=== PATIENT | female | born 1985 | race Caucasian/White ===

== ENCOUNTER → 2019-08-03 | Outpatient (CLI) | payer OTHER ==
[2019-08-03 09:39] LABS: Basophils % (A) 0 %; Eosinophils # (A) 0.2 k/uL (0-0.7); Eosinophils % (A) 2 %; HCT 34.8 % (34.0-46.0); HGB 12.3 gm/dL (11.4-16.0); Lymphocytes # (A) 2.4 k/uL (1.0-4.8); Lymphocytes % (A) 23 %; MCH 31.1 pg (25.0-35.0); MCHC 35.4 g/dL (31.0-37.0); MCV 87.8 fL (80.0-100.0); Monocytes # (A) 0.6 k/uL (0-1.0); Monocytes % (A) 6 %; Neutrophils % (A) 67 %; Platelet Count 298 k/uL (150-450); RBC 3.97 m/uL (3.80-5.40); RDW 13.2 % (11.5-15.5); WBC 10.4 k/uL (3.8-10.6)
== END | disposition home or self-care (01) ==
LOC: LABPAT 09:03
PROVIDERS: ATTEND Obstetrics & Gynecology
DX: Z01.812 Encounter for preprocedural laboratory examination (principal); O03.9 Complete or unspecified spontaneous abortion without complication
CPT/HCPCS: 36415; 85025

== ENCOUNTER 2019-08-04 07:16 | Day surgery (SDC) | payer OTHER ==
[2019-08-02 11:49] VITALS: BMI 19.5
[~2019-08-04 07:16] MED LIST: DEXAMETHASONE SOD PHOSPHATE 10 MG/ML 1 ML VIAL IV ONE; HYDROmorphone 0.5 MG/0.5 ML SYRINGE IVP PRN; LACTATED RINGERS 1,000 ML IV SCH; LIDOCAINE 1% 20 ML VIAL (10MG/ML) FOR IV START INTRADERMA PRN; ONDANSETRON 4 MG/2 ML VIAL IVP ONE; Pre Op ABX Message 1 EACH MISC MISCELLANE ONE
[2019-08-04 07:36] VITALS: RESP 16
[2019-08-04] MEDS ORDERED: SCOPOLAMINE 1.5MG/72HR PATCH TRANSDERM ONE (08:23)
[2019-08-04] MEDS ORDERED: KETOROLAC 30 MG/ML 1 ML VIAL ONE (08:44)
[2019-08-04] MEDS ORDERED: PROPOFOL 10 MG/ML 20 ML VIAL IV ONE (08:44)
[2019-08-04] MEDS ORDERED: LIDOCAINE 1% INJ 10MG/ML (20 ML MDV) ONE (08:44)
[2019-08-04] MEDS ORDERED: MIDAZOLAM 2 MG/2 ML VIAL ONE (08:44)
[2019-08-04] MEDS ORDERED: fentaNYL (PF) 50 MCG/ML 2 ML AMP ONE (08:44)
[2019-08-04] MEDS ORDERED: diphenhydrAMINE 50 MG/ML 1 ML VIAL IVP PRN (08:47)
[2019-08-04] MEDS ORDERED: KETOROLAC 30 MG/ML 1 ML VIAL IVP PRN (08:47)
[2019-08-04] MEDS ORDERED: Acetaminophen-Codeine 300-30mg TAB PO PRN ×2 (08:47)
[2019-08-04] MEDS ORDERED: ONDANSETRON 4 MG/2 ML VIAL IVP PRN (08:47)
[2019-08-04] MEDS ORDERED: IBUPROFEN 600 MG TAB PO PRN (08:47)
[2019-08-04] MEDS ORDERED: METOCLOPRAMIDE 5 MG/ML 2 ML VIAL IVP PRN (08:47)
[2019-08-04] MEDS ORDERED: SIMETHICONE 80 MG CHEWABLE PO PRN (08:47)
[2019-08-04] MEDS ORDERED: LACTATED RINGERS 1,000 ML IV SCH (09:00)
--- NOTE | 2019-08-04 09:19 | P.OP ---
Date of Procedure: 08/04/19 Preoperative Diagnosis: #1. 8+ week missed Postoperative Diagnosis: Same Procedure(s) Performed: #1. Dilation and aspiration curettage Anesthesia: other (Gen. by face mask) Surgeon: Arsenio Yao Estimated Blood Loss (ml): 800 IV fluids (ml): 500 Urine output (ml): 150 Pathology: other (Intrauterine contents) Condition: stable Disposition: PACU Operative Findings: Preoperative pelvic examination demonstrated an 8-10 week midplane mobile normal shaped uterus with normal adnexa bilaterally. Intraoperatively, the uterus sounded to approximately 12 cm. A #9 aspiration curet was utilized and tissues clearly seen passing through the tubing on the first 3-4 passes after which time no further tissue was noted. The typical gritty texture was encountered with a sharp curette and no further tissue was produced thereafter. The uterus was appreciably smaller following the procedure. Description of Procedure: The patient was prepped and draped in usual fashion after general anesthesia was administered by the anesthesiologist. A weighted speculum was placed and the bladder drained of approximately 150 mL of clear bella urine. The uterus was sounded to approximately 12 cm as noted above. A #9 curved aspiration curet was placed to the fundus after which time suction was applied. Thorough and circumferential os aspiration curettage was carried out from the fundus to the cervix with tissue seen passing through the tubing. A second pass was made at which time further tissue was noted a third and fourth pass were also made at which time some tissue was noted. On the fifth pass, no further tissue was noted passing a. The aspiration curet was replaced with a medium sharp curette which was used to thoroughly and circumferentially curet the in vitro cavity at which time the typical gritty texture was encountered throughout. One last pass was made with the aspiration curet at which time no further tissue was noted. All instrumentation was then removed. There was a moderate amount of blood loss with an estimated blood loss was approximate 100 mL. There were no complications. All sponge, instrument, and needle counts were correct. The patient tolerated the procedure well and proceeded to the recovery room in stable condition.
[2019-08-04 09:27] VITALS: TEMP 98.8
[2019-08-04 10:27] VITALS: BP 97/67; PULSE 84
== END 2019-08-04 11:03 | disposition home or self-care (01) ==
LOC: OR 07:16
PROVIDERS: ATTEND Obstetrics & Gynecology
DX: O02.1 Missed abortion (principal); F17.210 Nicotine dependence, cigarettes, uncomplicated; Z98.890 Other specified postprocedural states; Z98.818 Other dental procedure status
CPT/HCPCS: 86900; 86901; 88305; 86850; 59820; J2250; J1100; J2405; J2001; J3010; J1885; J2704

== ENCOUNTER 2020-05-07 09:55 | Emergency (ER) | payer OTHER ==
[2020-05-07 10:03] VITALS: BP 123/78; PULSE 92; RESP 18; TEMP 98.3
--- NOTE | 2020-05-07 10:32 | ED ---
Female Urogenital HPI - General Chief complaint: Vaginal Bleeding Stated complaint: Poss Miscarriage Time Seen by Provider: 05/07/20 10:04 Source: patient, RN notes reviewed Mode of arrival: ambulatory Limitations: no limitations - History of Present Illness Initial comments: 34-year-old female presents emergency Department with chief complaint of vaginal bleeding in early . Patient states she is A1 is unsure how far along she is she states that she has very irregular menstrual cycles. Patient had 2 positive tests at home. Patient states that she had a miscarriage earlier this year with a D&C. Patient states she has no pain states she has mild cramping. She states it's very light bleeding only when she wakes. No dysuria no hematuria no flank pain. - Related Data Previous Rx's Medication Instructions Recorded Cephalexin [Keflex] 500 mg PO Q8HR #21 cap 05/07/20 Allergies Allergy/AdvReac Type Severity Reaction Status Date / Time No Known Allergies Allergy Verified 05/07/20 11:20 Review of Systems ROS Statement: Those systems with pertinent positive or pertinent negative responses have been documented in the HPI. ROS Other: All systems not noted in ROS Statement are negative. Past Medical History Additional Past Medical History / Comment(s): anemia History of Any Multi-Drug Resistant Organisms: None Reported Past Surgical History: Section, Hernia Repair Additional Past Surgical History / Comment(s): left knee arthroscopy x 2 Past Anesthesia/Blood Transfusion Reactions: Motion Sickness Past Psychological History: No Psychological Hx Reported Smoking Status: Current every day smoker Past Alcohol Use History: None Reported Past Drug Use History: None Reported - Past Family History Mother Family Medical History: No Reported History General Exam Limitations: no limitations General appearance: alert, in no apparent distress Head exam: Present: atraumatic, normocephalic, normal inspection Eye exam: Present: normal appearance, PERRL, EOMI. Absent: scleral icterus, conjunctival injection, periorbital swelling Respiratory exam: Present: normal lung sounds bilaterally. Absent: respiratory distress, wheezes, rales, rhonchi, stridor Cardiovascular Exam: Present: regular rate, normal rhythm, normal heart sounds. Absent: systolic murmur, diastolic murmur, rubs, gallop, clicks GI/Abdominal exam: Present: soft, normal bowel sounds. Absent: distended, tenderness, guarding, rebound, rigid Back exam: Absent: CVA tenderness (R), CVA tenderness (L) Neurological exam: Present: alert, oriented X3 Skin exam: Present: warm, dry, intact, normal color. Absent: rash Course Vital Signs 05/07/20 10:01 Temperature 98.3 F Pulse Rate 92 Respiratory 18 Rate Blood Pressure 123/78 O2 Sat by Pulse 100 Oximetry Medical Decision Making - Medical Decision Making 34-year-old female presented for vaginal bleeding early . Ultrasound does not show any obvious intrauterine cannot exclude ectopic though patient has no pain associated with ectopic. Patient has a 14,000 hCG. Patient will follow-up with her ROLLER and has an appointment at [facility] have repeat hCG - Lab Data Lab Results 05/07/20 05/07/20 Range/Units 10:14 10:14 HCG, Quant 38160.2 mIU/mL Urine Color Light Yellow Urine Appearance Cloudy H (Clear) Urine pH 7.0 (5.0-8.0) Ur Specific [place] 1.010 (1.001-1.035) Urine Protein Negative (Negative) Urine Glucose (UA) Negative (Negative) Urine Ketones Negative (Negative) Urine Blood Moderate H (Negative) Urine Nitrite Positive H (Negative) Urine Bilirubin Negative (Negative) Urine Urobilinogen <2.0 (<2.0) mg/dL Ur Leukocyte Esterase Trace H (Negative) Urine RBC 1 (0-5) /hpf Urine WBC 5 (0-5) /hpf Ur Squamous Epith Cells 13 H (0-4) /hpf Urine Bacteria Occasional H (None) /hpf Urine Mucus Rare H (None) /hpf Disposition Clinical Impression: Threatened miscarriage in early , UTI (urinary tract infection) Disposition: HOME SELF-CARE Condition: Stable Instructions (If sedation given, give patient instructions): Threatened Misca rriage (ED) Additional Instructions: Please return to the Emergency Department if symptoms worsen or any other concerns. Prescriptions: Cephalexin [Keflex] 500 mg PO Q8HR #21 cap Is patient prescribed a controlled substance at d/c from ED?: No Referrals: None,Stated [Primary Care Provider] - 1-2 days Time of Disposition: 11:33
[2020-05-07 10:46] LABS: Appearance,Urine Cloudy (Clear); Bacteria,Urine Occasional /hpf; Bilirubin,Urine Negative (Negative); Blood,Urine Moderate (Negative); Color,Urine Light Yellow; Glucose,Urine (UA) Negative (Negative); Ketones,Urine Negative (Negative); Leukocyte Esterase,Urine Trace (Negative); Mucus,Urine Rare /hpf; Nitrite,Urine Positive (Negative); Protein,Urine Negative (Negative); RBC,Urine 1 /hpf (0-5); Squamous Epithelial Cell,Urine 13 /hpf (0-4); Urobilinogen,Urine <2.0 mg/dL (<2.0); WBC,Urine 5 /hpf (0-5)
--- NOTE | 2020-05-07 11:23 | US ---
EXAMINATION TYPE: Transabdominal DATE OF EXAM: 05/07/2020 10:51 AM COMPARISON: NONE CLINICAL HISTORY: bleeding. bleeding. Positive test x 2 days ago. Irregular menses- last mid January. EXAM PERFORMED: Transvaginal (TV) and Transabdominal (TA) EXAM MEASUREMENTS: GESTATIONAL AGE / DATING Dates by LMP: Mid January Dates by Current Scan for: Unable to date by today's study MATERNAL ANATOMY Uterus: 9.4 x 7.0 x 4.6 cm Right Ovary: 4.0 x 2.3 x 2.3 cm Left Ovary: 3.0 x 2.1 x 1.8 cm Post CDS / Adnexa: no free fluid Presence of free fluid: no Presence of corpus luteal cyst: right ovarian lesion = 1.9 x 2.0 x 1.8 cm. Left cystic lesion seen a djacent to or within left ovary, unable to to accurately determine origin= 1.2 x 1.1 x 1.0 cm Presence of subchorionic bleed: no GESTATION / SURVEY MSD: 0.9 cm (Too small to date) Yolk Sac (normal less than 6mm): not seen IUP: GS visualized in endometrial canal Date of LMP: Mid January, Beta HcG (if available): Not available at this time Heterogeneous anteverted uterus. Endometrium thickened to 19 mm. There is ovoid anechoic to hypoechoi c structure within endometrium could reflect abnormal gestational sac or focal fluid/hemorrhage. No y olk sac or pole seen. No free fluid in pelvic cul-de-sac. Both ovaries identified with peripheral follicles scattered throughout both ovaries and dominant 2.0 cm peripheral lesion right ovary suspicious for corpus luteal cyst. IMPRESSION: Findings could reflect too early to visualize intrauterine or spontaneous abort ion. Ectopic thought unlikely but not entirely excluded. History is confusing. Serial beta hCG and ultrasound follow-up advised.
== END 2020-05-07 11:42 | disposition home or self-care (01) ==
LOC: EC 09:55
DX: O20.0 Threatened abortion (principal); O23.40 Unspecified infection of urinary tract in pregnancy, unspecified trimester; O99.330 Smoking (tobacco) complicating pregnancy, unspecified trimester; F17.200 Nicotine dependence, unspecified, uncomplicated; Z3A.00 Weeks of gestation of pregnancy not specified
CPT/HCPCS: 36415; 76801; 76817; 81001; 84702; 99284

== ENCOUNTER 2020-05-08 19:48 | Emergency (ER) | payer OTHER ==
[2020-05-08 20:17] VITALS: BP 109/73; PULSE 95; RESP 18; TEMP 98.5
--- NOTE | 2020-05-08 21:17 | ED ---
Abdominal Pain HPI - General Chief Complaint: Abdominal Pain Stated Complaint: Revisit Vaginal bleeding Time Seen by Provider: 05/08/20 20:35 Source: patient Mode of arrival: wheelchair Limitations: no limitations - History of Present Illness Initial Comments: Patient is a 34-year-old female presenting to the emergency Department with complaints of increase in vaginal bleeding and abdominal cramping. Patient was seen in the ER yesterday and was told she is having a possible miscarriage. Her ultrasound was inconclusive and they recommended a follow-up ultrasound. She is currently 5-6 weeks , . Patient does have an appoint with her OB, after [facility] tomorrow morning. She was supposed to also have her hCG rechecked as well. Patient states throughout today she's been having increase in bleeding as well as abdominal cramping. She states the abdominal cramping has been intermittent. She states she has had a miscarriage in the past and it was nothing like this. She denies any fever, dizziness, nausea, vomiting, diarrhea. She is also being treated for a UTI and she is currently on Keflex. Patient has no other complaints at this time. Upon arrival to the ER her vital signs are stable. - Related Data Previous Rx's Medication Instructions Recorded Cephalexin [Keflex] 500 mg PO Q8HR #21 cap 05/07/20 Allergies Allergy/AdvReac Type Severity Reaction Status Date / Time No Known Allergies Allergy Verified 05/08/20 20:17 Review of Systems ROS Statement: Those systems with pertinent positive or pertinent negative responses have been documented in the HPI. ROS Other: All systems not noted in ROS Statement are negative. Past Medical History Additional Past Medical History / Comment(s): anemia History of Any Multi-Drug Resistant Organisms: None Reported Past Surgical History: Section, Hernia Repair Additional Past Surgical History / Comment(s): left knee arthroscopy x 2 Past Anesthesia/Blood Transfusion Reactions: Motion Sickness Past Psychological History: No Psychological Hx Reported Smoking Status: Current every day smoker Past Alcohol Use History: None Reported Past Drug Use History: None Reported - Past Family History Mother Family Medical History: No Reported History General Exam - General Exam Comments Initial Comments: GENERAL: Patient is well-developed and well-nourished. Patient is nontoxic and in no acute distress. HEAD: Atraumatic, normocephalic. EYES: Pupils equal round and reactive to light, extraocular movements intact, sclera anicteric, conjunctiva are normal. Eyelids were unremarkable. ENT: TMs normal, nares patent, oropharynx clear without exudates. Moist mucous membranes. NECK: Normal range of motion, supple without lymphadenopathy or JVD. LUNGS: Unlabored respirations. Breath sounds clear to auscultation bilaterally and equal. No wheezes rales or rhonchi. HEART: Regular rate and rhythm without murmurs, rubs or gallops. ABDOMEN: Soft, nontender, normoactive bowel sounds. No guarding, no rebound. No masses appreciated. MUSCULOSKELETAL: Normal extremities with adequate strength and normal range of motion, no pitting or edema. No clubbing or cyanosis. NEUROLOGICAL: Patient is alert and oriented x 3. Motor and sensory are also intact. Normal speech, normal gait. PSYCH: Normal mood, normal affect. SKIN: Warm, Dry, normal turgor, no rashes or lesions noted. Limitations: no limitations External exam: Present: normal external exam Speculum exam: Present: vaginal bleeding, other (cervical os appears closed). Absent: cervical discharge Course Vital Signs 05/08/20 20:15 Temperature 98.5 F Pulse Rate 95 Respiratory 18 Rate Blood Pressure 109/73 O2 Sat by Pulse 99 Oximetry Medical Decision Making - Medical Decision Making Patient is a 34-year-old female here for a follow-up regarding vaginal bleeding and lower abdominal cramping. Patient was seen in the ER yesterday for same complaint, she is currently 5-6 weeks . Her ultrasound yesterday was inconclusive, they recommended follow-up ultrasound and follow-up beta hCG in 48 hours. Patient states she does have appointment with her [facility] tomorrow morning, Dr. Yao. Her vital signs are stable. I did do a vaginal exam, no hemorrhaging, mild vaginal bleeding. Her cervical os appears closed. I discussed with patient that she should continue with her follow-up tomorrow morning. She is stable at this time. She is stable for discharge. Patient is agreeable with this plan of care. She is also being treated for a UTI will continue with her already prescribed Keflex. Return parameters were discussed with the patient she verbalized understanding. Disposition Clinical Impression: Threatened miscarriage in early Disposition: HOME SELF-CARE Condition: Stable Instructions (If sedation given, give patient instructions): Threatened Miscarriage (ED) Additional Instructions: Please return to the Emergency Department if symptoms worsen or any other concerns. Continue with appointment tomorrow morning with Dr. Yao. May take Tylenol for discomfort, continue with already prescribed antibiotics. Is patient prescribed a controlled substance at d/c from ED?: No Referrals: None,Stated [Primary Care Provider] - 1-2 days Arsenio Yao MD [STAFF PHYSICIAN] - 1-2 days
== END 2020-05-08 21:39 | disposition home or self-care (01) ==
LOC: EC 19:48
DX: O20.0 Threatened abortion (principal); O99.331 Smoking (tobacco) complicating pregnancy, first trimester; Z3A.01 Less than 8 weeks gestation of pregnancy; F17.200 Nicotine dependence, unspecified, uncomplicated
CPT/HCPCS: 99283

== ENCOUNTER → 2020-05-09 | Outpatient (CLI) | payer OTHER | END | disposition home or self-care (01) | LOC: LABWHC1 08:10 | PROVIDERS: ATTEND Obstetrics & Gynecology | DX: O20.0 Threatened abortion (principal) | CPT/HCPCS: 36415; 84702 ==

== ENCOUNTER → 2024-01-26 | Outpatient (CLI) | payer OTHER ==
--- NOTE | 2024-01-26 13:58 | USB ---
Reason for Exam: Clinical finding. Patient History: Menarche at age 13. First Full-Term at age 23. Premenopausal. Hormonal Contraceptives, from age 15 until age 24. Risk Values: Parvin 5 year model risk: 0.4%. NCI Lifetime model risk: 8.3%. Technique: Method: Targeted. Findings: The area of palpable concern of the left breast, the lower outer quadrant of the left breast, the axilla of the left breast and the retroareolar of the left breast were scanned. There is a lobular irregular hypoechoic area 3 cm from the nipple 4:00 position measuring 2.0 x 1.6 x 2.2 cm. Finding is considered suspicious. Biopsy is recommended. Previa. Simple cysts near the left nipple measuring 6.0 cm x 0.8 x 0.6 cm. The left axilla there is a 0.9 x 0.5 x 0.5 cm node. This has thickened cortex.. An additional 1.7 x 0.5 cm x 0.7 lymph node appears to be present. Overall Assessment: Suspicious, BI-RAD 4 Management: Surgical Consultation of the left breast. Ultrasound Core Biopsy of the left breast. A clinical breast exam by your physician is recommended on an annual basis and results should be correlated with mammographic findings. This exam should not preclude additional follow-up of suspicious palpable abnormalities. Results were given to the patient verbally at the time of exam. Electronically signed and approved by: Juan Butler D.O. Radiologis
--- NOTE | 2024-01-26 13:59 | MM ---
Reason for Exam: Clinical finding. Risk Values: Parvin 5 year model risk: 0.4%. NCI Lifetime model risk: 8.3%. Tissue Density: The breasts are extremely dense, which lowers the sensitivity of mammography. Findings: Analyzed By CAD. The pattern is symmetrical. There is some regional punctate calcifications in the upper outer left breast near the region of the palpable abnormality. Suspicious cluster of microcalcifications is not identified. Slight asymmetric densities in the upper outer left breast. Recommend additional evaluation with ultrasound of the palpable abnormality. No suspicious groups of microcalcifications, spiculated or lobular masses, architectural distortion or other secondary signs of malignancy are mammographically apparent. Overall Assessment: Incomplete: need additional imaging evaluation, BI-RAD 0 Management: Diagnostic Breast Ultrasound of the left breast. A negative mammogram report should not preclude additional follow up of suspicious palpable abnormalities. Patient should continue monthly self breast exam. A clinical breast exam by your physician is recommended on an annual basis and results should be correlated with mammographic findings. Note on Parvin scores and lifetime risk: 1. A Parvin score greater than 3% is considered moderate risk. If this is the case, consider specialist referral to assess eligibility for a risk reducing agent. 2. If overall lifetime risk for the development of breast cancer is 20% or higher, the patient may qualify for future screening with alternating mammogram and breast MRI. Electronically signed and approved by: Juan Butler D.O. Radiologis
== END | disposition home or self-care (01) ==
LOC: RADMAMWWP 12:44
PROVIDERS: ATTEND Surgery
DX: N63.20 Unspecified lump in the left breast, unspecified quadrant (principal); R92.343 Mammographic extreme density, bilateral breasts
CPT/HCPCS: 77062; 77066

== ENCOUNTER → 2024-02-02 | Day surgery (SDC) | payer OTHER ==
--- NOTE | 2024-03-08 09:17 | MM ---
Reason for Exam: Post Procedure Mammogram. Last screening mammogram was performed less than 1 month ago. Patient History: Menarche at age 13. First Full-Term at age 23. Premenopausal. Hormonal Contraceptives, from age 15 until age 24. Risk Values: Parvin 5 year model risk: 0.4%. NCI Lifetime model risk: 8.3%. Prior Study Comparison: 01/26/2024 Left US breast limited LT, [facility]. 01/26/2024 Bilateral MG 3D diag mammo w/cad ELIJAH, [facility]. Tissue Density: Left: The breasts are extremely dense, which lowers the sensitivity of mammography. Pathology Description: Location: axilla. Marker Left Behind. Needle Type: Celero Cores: 2 Gauge: 12 Pathology Description: Location: 4 o'clock. Marker Left Behind. Needle Type: Celero Cores: 4 Gauge: 12 Pathology Results: Result: Malignant, Invasive ductal carcinoma. Pathology and radiology were reviewed. Findings are concordant. A. LEFT BREAST, FOUR O'CLOCK, ULTRASOUND GUIDED NEEDLE CORE BIOPSY: Invasive moderately differentiated ductal carcinoma (Grade 2). See Surgical Pathology Cancer Case Summary and Comment. B. LEFT AXILLA LYMPH NODE, CORE BIOPSY: Invasive moderately differentiated ductal carcinoma (Grade 2). See Surgical Pathology Cancer Case Summary and Comment. Overall Assessment: Malignant Assessment: MG diagnostic mammo LT wo CAD. - Left: Known biopsy proven malignancy, BI-RAD 6. Management: Surgical Consultation of the left breast. Electronically signed and approved by: Lewis Carvajal M.D. Radiologis
== END ==
LOC: RADUSWWP 09:51
PROVIDERS: ATTEND Surgery
DX: C50.912 Malignant neoplasm of unspecified site of left female breast (principal)
CPT/HCPCS: 88305; 88342; 88341; 77065; 19083; 19084; A4648

== ENCOUNTER → 2024-02-09 | Outpatient (CLI) | payer OTHER ==
[2024-02-09 08:51] VITALS: BP 107/65; PULSE 73; RESP 16; TEMP 97.8
--- NOTE | 2024-02-09 09:59 | P.GSCN ---
History of Present Illness Consult date: 02/09/24 Reason for Consult: left breast cancer Requesting physician: Brenden Silva History of present illness: Rohini is a 38 year old female seen in consultation regarding a biopsy proven left breast IDC. She had a bilateral mammogram on 01-26-24 followed by a left breast ultrasound on 01-26-24. The ultrasound showed a 2 by 2.2 cm lesion and several enlarged nodes. Biopsy was done on 02-02-24 which showed IDC G2, +Node ER+Pr+Her2+. The patient has been able to feel a lump in her left breast for several months. This was her first mammogram. It has slightly increased in size since it was first noticed. She has not had any other surgery on her breast. She is not complaining of any nipple discharge. She does have some tethering of the skin at the site. Caffeine: caffeine all day nicotine: 1/2 PPD since chocolate: occasional BCP: depo shots and implants, she has not used them for about 2010 Family History: sister's daughter: lymphoma in remission Hormonal History: menarche: 12 M2, breast fed: no, age at first : 23 periods irregular, LMP: December 01 Surgical History: left knee hernia D&C Medical History: none Social History: nicotien: 1/2 PPD since alcohol: none drugs: THC gummies daily; smoke marijuana daily Review of Systems - Constitutional Denies fever, Denies weight loss - EENT Eyes: denies blurred vision Ears: deny: decreased hearing, tinnitus Ears, nose, mouth and throat: Denies dysphagia - Breasts bilateral: as per HPI - Cardiovascular Denies chest pain, Denies shortness of breath - Respiratory Denies cough, Denies 7 - Gastrointestinal Reports as per HPI - Genitourinary Genitourinary: Denies dysuria, Denies hematuria Menstruation: Reports cycle variable - Musculoskeletal Reports as per HPI - Integumentary Denies rash, Denies unusual bruising - Neurological Neurologic Comment(s): slightly anemic, motion sickness, at those times can pass out Reports syncope, Denies headaches - Psychiatric Reports anxiety - Endocrine Reports as per HPI - Hematologic/Lymphatic Reports as per HPI - Allergic/Immunologic Reports seasonal allergies Past Medical History Past Medical History: No Reported History Additional Past Medical History / Comment(s): anemia History of Any Multi-Drug Resistant Organisms: None Reported Past Surgical History: Section, Hernia Repair Additional Past Surgical History / Comment(s): left knee arthroscopy x 2 Past Anesthesia/Blood Transfusion Reactions: Motion Sickness Past Psychological History: No Psychological Hx Reported Smoking Status: Current every day smoker Past Alcohol Use History: None Reported Additional Past Alcohol Use History / Comment(s): smokes .5 ppd cigarettes daily, has smoked for 20 yrs Past Drug Use History: Marijuana Additional Drug Use History / Comment(s): THC gummy on occassion - Past Family History Mother Family Medical History: No Reported History Medications and Allergies Home Medications Medication Instructions Recorded Confirmed Type No Known Home Medications 01/28/24 02/09/24 History Allergies Allergy/AdvReac Type Severity Reaction Status Date / Time No Known Allergies Allergy Verified 02/09/24 08:48 Surgical - Exam Vital Signs Temp Pulse Resp BP Pulse Ox 97.8 F 73 16 107/65 100 02/09/24 08:48 02/09/24 08:48 02/09/24 08:48 02/09/24 08:48 02/09/24 08:48 - General moderate distress - Eyes normal ocular movement - ENT no hearing loss - Neck trachea midline - Respiratory normal respiratory effort, clear to auscultation - Cardiovascular Rhythm: regular Heart Sounds: normal: S1, S2 - Abdomen Abdomen: soft, non tender, no guarding, no rigid, no rebound - Integumentary normal turgor - Neurologic no disoriented, no combative - Musculoskeletal normal gait - Psychiatric oriented to time, oriented to person, oriented to place, speech is normal, memory intact Breast exam: BRA: 34B Inspection: Ecchymosis left breast, mild skin tethering inferior lateral aspect of left breast, bilateral grade 2 ptosis Palpation: Right breast: Multi positional exam fibrocystic changes no dominant masses or nodules of concern Right axilla: No adenopathy of concern Left breast: Multi positional exam fullness in the lateral aspect of the left breast approximately 2 cm in size, mild skin tethering inferior lateral left breast Left axilla: Adenopathy Results Mammogram and ultrasound reviewed and discussed personally with Dr. 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 Silva
== END ==
LOC: WWCWWP 08:37
PROVIDERS: ATTEND Surgery
DX: C50.912 Malignant neoplasm of unspecified site of left female breast (principal); N63.20 Unspecified lump in the left breast, unspecified quadrant; F17.210 Nicotine dependence, cigarettes, uncomplicated; Z17.0 Estrogen receptor positive status [ER+]

== ENCOUNTER → 2024-04-14 | Outpatient (CLI) | payer OTHER ==
[2024-04-14 11:46] VITALS: BP 146/84; PULSE 89; RESP 17; TEMP 98.1
--- NOTE | 2024-04-14 12:15 | P.PN ---
Subjective Progress Note Date: 04/14/24 Principal diagnosis: left breast IDC 02-02-24/ neoadjuvant therapy [id number]+Pr+Her2+G3; stage IB History of Present Illness 04-14-24 left breast cancer Requesting physician: Brenden Silva History of present illness: Rohini is a 38 year old female seen in consultation on 02-09-24 regarding a biopsy proven left breast IDC. She had a bilateral mammogram on 01-26-24 followed by a left breast ultrasound on 01-26-24. The ultrasound showed a 2 by 2.2 cm lesion and several enlarged nodes. Biopsy was done on 02-02-24 which showed IDC G2, +Node ER+Pr+Her2+. The patient had been able to feel a lump in h er left breast for several months. This was her first mammogram. It had slightly increased in size since it was first noticed. She has not had any other surgery on her breast. She was not complaining of any nipple discharge. She does have some tethering of the skin at the site. Her case was presented at tumor board on 03-07-2024. The recommendation was a breast MRI, referral to medical oncology, genetic testing, neoadjuvant therapy She was seen by Dr. Henry Goode on 02-14-2024, note from 04-14-24 reviewed 1. appointment with medical oncology, her next 2 cycles are scheduled for , and May 18. (she is to receive 6 treatments TCHP and the last will be around [place], usually about 4-6 weeks later will be ready for surgery) 2. genetic testing; was CHEK 2 VUS 3. MRI of the breast; this was done at [facility]; breast lesion measured 3.9 cm in the largest parameter 4. presentation at tumor board done on 03-07-24 Patient had two COVID vaccines. The patient is seen with her . She is doing well at this time. She has had a good response to the neoadjuvant treatment with a decrease in size of the lesion in the left breast and nonpalpable lymph nodes now in the axilla. Caffeine: caffeine all day nicotine: 1/2 PPD since chocolate: occasional BCP: depo shots and implants, she has not used them for about 2010 Family History: sister's daughter: lymphoma in remission Hormonal History: menarche: 12 M2, breast fed: no, age at first : 23 periods irregular, LMP: December 01 Surgical History: left knee hernia D&C Medical History: none Social History: nicotien: 1/2 PPD since alcohol: none drugs: THC gummies daily; smoke marijuana daily Review of Systems - Constitutional Denies fever, Denies weight loss - EENT Eyes: denies blurred vision Ears: deny: decreased hearing, tinnitus Ears, nose, mouth and throat: Denies dysphagia - Breasts bilateral: as per HPI - Cardiovascular Denies chest pain, Denies shortness of breath - Respiratory Denies cough - Gastrointestinal Reports as per HPI - Genitourinary Genitourinary: Denies dysuria, Denies hematuria Menstruation: Reports cycle variable - Musculoskeletal Reports as per HPI - Integumentary Denies rash, Denies unusual bruising - Neurological Neurologic Comment(s): slightly anemic, motion sickness, at those times can pass out Reports syncope, Denies headaches - Psychiatric Reports anxiety - Endocrine Reports as per HPI - Hematologic/Lymphatic Reports as per HPI - Allergic/Immunologic Reports seasonal allergies Past Medical History Past Medical History: No Reported History Additional Past Medical History / Comment(s): anemia History of Any Multi-Drug Resistant Organisms: None Reported Past Surgical History: Section, Hernia Repair Additional Past Surgical History / Comment(s): left knee arthroscopy x 2 Past Anesthesia/Blood Transfusion Reactions: Motion Sickness Past Psychological History: No Psychological Hx Reported Smoking Status: Current every day smoker Past Alcohol Use History: None Reported Additional Past Alcohol Use History / Comment(s): smokes .5 ppd cigarettes daily, has smoked for 20 yrs Past Drug Use History: Marijuana Additional Drug Use History / Comment(s): THC gummy on occassion - Past Family History Mother Family Medical History: No Reported History Medications and Allergies Home Medications Medication Instructions Recorded Confirmed Type No Known Home Medications 01/28/24 02/09/24 History Allergies Allergy/AdvReac Type Severity Reaction Status Date / Time No Known Allergies Allergy Verified 02/09/24 08:48 Objective - Vital Signs Vital signs: Vital Signs Temp 98.1 F 04/14/24 11:44 Pulse 89 04/14/24 11:44 Resp 17 04/14/24 11:44 BP 146/84 04/14/24 11:44 Pulse Ox 98 04/14/24 11:44 FiO2 Intake & Output 04/13/24 04/14/24 04/14/24 18:59 06:59 18:59 Weight 57.153 kg - Constitutional General appearance: Present: cooperative - EENT Eyes: Present: EOMI ENT: Present: hearing grossly normal - Neck Neck: Present: normal ROM - Respiratory Respiratory: bilateral: CTA - Cardiovascular Rhythm: regular Heart sounds: normal: S1, S2 - Integumentary Integumentary: Present: normal turgor - Musculoskeletal Musculoskeletal: Present: gait normal - Psychiatric Psychiatric: Present: A&O x's 3, appropriate affect, intact judgment & insight - Additional findings Additional findings: Breast exam: BRA: 34B Inspection: mild skin tethering inferior lateral aspect of left breast, bilateral grade 2 ptosis at first examination, there is no longer any skin tethering present Palpation: Right breast: Multi positional exam fibrocystic changes no dominant masses or nodules of concern Right axilla: No adenopathy of concern Left breast: Multi positional exam fullness in the lateral aspect of the left breast approximately 2 cm in size, mild skin tethering inferior lateral left breast were noted on her initial visit at this time she has what appears to be fibrocystic breast changes only with no discrete masses or nodules Left axilla: Mild adenopathy does not appear worrisome Assessment and Plan Assessment: Impression: Left breast invasive ductal carcinoma [id number] ER positive PA positive HER2 positive Nicotine dependence neoadjuvant chemotherapy Plan: follow up in two months for surgical planning; at this time the patient expresses a desire for bilateral nipple sparing mastectomies with immediate reconstruction and left sentinel node biopsy/axillary node dissection/needle localization of known prior positive lymph node I have had a discussion with the patient and her they understand the timing of this and prior to this will be seen by plastic surgery to coordinate the surgical date. Patient seen with her follow up in 2 months CC: Dr. Silva
== END ==
LOC: WWCWWP 11:18
PROVIDERS: ATTEND Surgery
DX: C50.512 Malignant neoplasm of lower-outer quadrant of left female breast

== ENCOUNTER → 2024-06-29 | Outpatient (CLI) | payer OTHER ==
[2024-06-29 12:46] VITALS: BP 104/69; PULSE 97; RESP 16; TEMP 97.8
--- NOTE | 2024-06-29 12:58 | P.PN ---
Subjective Progress Note Date: 06/29/24 06-29-24 Principal diagnosis: left breast IDC 02-02-24/ neoadjuvant therapy [id number]+Pr+Her2+G3; stage IB Requesting physician: Brenden Silva History of present illness: Rohini is a 38 year old female seen in consultation on 02-09-24 regarding a biopsy proven left breast IDC. She had a bilateral mammogram on 01-26-24 followed by a left breast ultrasound on 01-26-24. The ultrasound showed a 2 by 2.2 cm lesion and several enlarged nodes. Biopsy was done on 02-02-24 which showed IDC G2, +Node ER+Pr+Her2+. The patient had been able to feel a lump in her left breast for several months. This was her first mammogram. It had slightly increased in size since it was first noticed. She has not had any other surgery on her breast. She was not complaining of any nipple discharge. She does have some tethering of the skin at the site. Her case was presented at tumor board on 03-07-2024. The recommendation was a breast MRI, referral to medical oncology, genetic testing, neoadjuvant therapy; MRI noted lesion in left breast 3.9 cm She was seen by Dr. Henry Goode on 02-14-2024, note from 04-14-24 reviewed 1. appointment with medical oncology, her next 2 cycles are scheduled for April 27, and May 18. (she is to receive 6 treatments TCHP and the last will be around [place], usually about 4-6 weeks later will be ready for surgery) 2. genetic testing; was CHEK 2 VUS 3. MRI of the breast; this was done at [facility]; breast lesion measured 3.9 cm in the largest parameter 4. presentation at tumor board done on 03-07-24 Patient had two COVID vaccines. The patient is seen with her . She is doing well at this time. She has had a good response to the neoadjuvant treatment with a decrease in size of the lesion in the left breast and nonpalpable lymph nodes now in the axilla. note 06-02-24 medical oncology reviewed: will complete cycle 6 of chemo on 07-06-24 and hope to do MRI in July 21 at 4:45 to assess tumor response They met with plastic surgeon and will plan on surgery after completes chemotherapy Caffeine: caffeine all day nicotine: 1/2 PPD since chocolate: occasional BCP: depo shots and implants, she has not used them for about 2010 Family History: sister's daughter: lymphoma in remission Hormonal History: menarche: 12 M2, breast fed: no, age at first : 23 periods irregular, LMP: December 01 Surgical History: left knee hernia D&C Medical History: none Social History: nicotien: 1/2 PPD since alcohol: none drugs: THC gummies daily; smoke marijuana daily Review of Systems - Constitutional Denies fever, Denies weight loss - EENT Eyes: denies blurred vision Ears: deny: decreased hearing, tinnitus Ears, nose, mouth and throat: Denies dysphagia - Breasts bilateral: as per HPI - Cardiovascular Denies chest pain, Denies shortness of breath - Respiratory Denies cough - Gastrointestinal Reports as per HPI - Genitourinary Genitourinary: Denies dysuria, Denies hematuria Menstruation: Reports cycle variable - Musculoskeletal Reports as per HPI - Integumentary Denies rash, Denies unusual bruising - Neurological Neurologic Comment(s): slightly anemic, motion sickness, at those times can pass out Reports syncope, Denies headaches - Psychiatric Reports anxiety - Endocrine Reports as per HPI - Hematologic/Lymphatic Reports as per HPI - Allergic/Immunologic Reports seasonal allergies Past Medical History Past Medical History: No Reported History Additional Past Medical History / Comment(s): anemia History of Any Multi-Drug Resistant Organisms: None Reported Past Surgical History: Section, Hernia Repair Additional Past Surgical History / Comment(s): left knee arthroscopy x 2 Past Anesthesia/Blood Transfusion Reactions: Motion Sickness Past Psychological History: No Psychological Hx Reported Smoking Status: Current every day smoker Past Alcohol Use History: None Reported Additional Past Alcohol Use History / Comment(s): smokes .5 ppd cigarettes daily, has smoked for 20 yrs Past Drug Use History: Marijuana Additional Drug Use History / Comment(s): THC gummy on occassion - Past Family History Mother Family Medical History: No Reported History Medications and Allergies Home Medications Medication Instructions Recorded Confirmed Type No Known Home Medications 01/28/24 02/09/24 History Allergies Allergy/AdvReac Type Severity Reaction Status Date / Time No Known Allergies Allergy Verified 02/09/24 08:48 Objective - Constitutional General appearance: Present: cooperative - EENT Eyes: Present: EOMI ENT: Present: hearing grossly normal - Neck Neck: Present: normal ROM - Respiratory Respiratory: bilateral: CTA - Cardiovascular Rhythm: regular Heart sounds: normal: S1, S2 - Integumentary Integumentary: Present: normal turgor - Musculoskeletal Musculoskeletal: Present: gait normal - Psychiatric Psychiatric: Present: A&O x's 3, appropriate affect, intact judgment & insight - Additional findings Additional findings: Breast exam: BRA: 34B Inspection: mild skin tethering inferior lateral aspect of left breast resolved, bilateral grade 2 ptosis at first examination Palpation: Right breast: Multi positional exam fibrocystic changes no dominant masses or nodules of concern Right axilla: No adenopathy of concern Left breast: Multi positional exam mild fullness upper outer quadrant left breast no discrete dominant masses or nodules of concern Left axilla: Mild adenopathy does not appear worrisome Assessment and Plan Assessment: Impression: Left breast invasive ductal carcinoma [id number] ER positive SC positive HER2 positive Nicotine dependence neoadjuvant chemotherapy complete on July 06 Plan: desire for bilateral nipple sparing mastectomies with immediate reconstruction and left sentinel node biopsy/axillary node dissection/needle localization of known prior positive lymph node I have had a discussion with the patient and her they understand the timing of this and prior to this and have been seen by plastic surgery to coordinate the surgical date. Patient seen with her follow up in 1 month represent case at tumor board CC: Dr. Silva
== END ==
LOC: WWCWWP 12:15
PROVIDERS: ATTEND Surgery
DX: C50.912 Malignant neoplasm of unspecified site of left female breast (principal); F17.210 Nicotine dependence, cigarettes, uncomplicated; Z17.0 Estrogen receptor positive status [ER+]; Z17.21 Progesterone receptor positive status

== ENCOUNTER → 2024-06-30 | Outpatient (CLI) | payer OTHER ==
--- NOTE | 2024-06-30 16:46 | US ---
EXAMINATION TYPE: US venous doppler duplex LE BI DATE OF EXAM: 06/30/2024 4:31 PM COMPARISON: NONE CLINICAL INDICATION: Female, 38 years old with history of M79.662 PAIN IN LEFT LOWER LEG M79.661 PAIN IN RIG; Swelling with L>R, Chemo patient, Pain TECHNIQUE: The lower extremity deep venous system is examined utilizing real time linear array sonog yoseph with graded compression, color doppler sonography, and spectral doppler. SIDE PERFORMED: Bilateral FINDINGS: VESSELS IMAGED: Common Femoral Vein Deep Femoral Vein Greater Saphenous Vein * Femoral Vein Popliteal Vein Small Saphenous Vein * Proximal Calf Veins (* superficial vessels) Right Leg: Negative for DVT, Color Doppler imaging shows patency of the vessels. Spectral waveforms are within normal limits. Left Leg: Negative for DVT, Color Doppler imaging shows patency of the vessels. Spectral waveforms a re within normal limits. IMPRESSION: No ultrasound evidence for deep venous thrombosis. [facility], , 06/30/2024 4:43 PM
== END | disposition home or self-care (01) ==
LOC: RADUSWWP 16:03
PROVIDERS: ATTEND Internal Medicine
DX: M79.662 Pain in left lower leg (principal); M79.661 Pain in right lower leg; R22.42 Localized swelling, mass and lump, left lower limb; R22.41 Localized swelling, mass and lump, right lower limb
CPT/HCPCS: 93970

== ENCOUNTER → 2024-07-21 | Outpatient (CLI) | payer OTHER ==
--- NOTE | 2024-07-25 12:11 | BMR ---
Addendum ADDENDUM: No post contrast enhancement in the left breast at 4 o'clock position at the site of biopsy-proven primary malignancy consistent with favorable response to neoadjuvant chemotherapy. There were 4 dynamic post contrast sequences were obtained. There is a typing error in the prior report where it was mentioned as only 1 dynamic post contrast sequence was obtained. FINAL Dictated By: And Verified By: LUIS DANIEL MILIAN MD Electronically Signed Date: 07/25/24 11:10 Date Dictated: SKB 07/25/24 11:06 Date Transcribed: FT 07/25/24 11:08 MR Report EXAM DATE: 07/21/2024 EXAM DESCRIPTION: MRI-Breast Bilat (W/WO Contrast) INDICATION: Left breast carcinoma on neoadjuvant chemotherapy. Restaging. COMPARISON: Prior mammogram and ultrasound dated 02/02/2024 CONTRAST: 6.4 mL of Gadavist contrast material. TECHNIQUE: Multi sequence multiplanar MR imaging of the breasts was obtained. Subsequently, after the uneventful intravenous administration of ; contrast material, Only 1 dynamic sequence was obtained. Post processing was performed utilizing a [employer] CAD workstation. FINDINGS: The breasts are composed of heterogeneous fibroglandular tissue. There is mild background parenchymal enhancement identified. No axillary or internal mammary lymphadenopathy. No focal skin thickening or nipple retraction. The bone marrow signal intensities is unremarkable. No adenopathy in the mediastinum. T2 weighted images demonstrated a few subcentimeter T2 bright lesions in both breast likely representing fibrocystic changes. Linear increased T2 signal in the inferolateral quadrant of left breast likely related to ultrasound-guided core biopsy. Trace amount of fluid in the left pleural space likely physiological. Post contrast images demonstrated no abnormal enhancement in either breast including biopsy-proven left malignancy site at 4 o'clock position. There is no abnormal signal or enhancement in the chest wall or subcutaneous tissue. IMPRESSION: 1. No post contrast enhancement in the left breast at 4 o'clock position at the site of biopsy-proven malignancy consistent with favorable response to neoadjuvant chemotherapy, given the limitation that only 1 dynamic post contrast sequence could be obtained. 2. No axillary or internal mammary lymphadenopathy. 3. No definite MR evidence of malignancy in the right breast. Final assessment: BI-RADS category 2: Benign findings MTDD
== END | disposition home or self-care (01) ==
LOC: RADMRIMAIN 16:39
PROVIDERS: ATTEND Internal Medicine
DX: C50.112 Malignant neoplasm of central portion of left female breast (principal); R92.8 Other abnormal and inconclusive findings on diagnostic imaging of breast; D64.9 Anemia, unspecified
CPT/HCPCS: 77049; A9585

== ENCOUNTER → 2024-07-28 | Outpatient (CLI) | payer OTHER ==
[2024-07-28 11:50] VITALS: BP 118/75; PULSE 98; RESP 17; TEMP 97.9
--- NOTE | 2024-07-28 12:20 | P.BCPN ---
Subjective Progress Note Date: 07/28/24 Subjective Progress Note Date: 07-28-24 Principal diagnosis: left breast IDC 02-02-24/ neoadjuvant therapy [id number]+Pr+Her2+G3; stage IB Requesting physician: Brenden Silva History of present illness: Rohini is a 38 year old female seen in consultation on 02-09-24 regarding a biopsy proven left breast IDC. She had a bilateral mammogram on 01-26-24 followed by a left breast ultrasound on 01-26-24. The ultrasound showed a 2 by 2.2 cm lesion and several enlarged nodes. Biopsy was done on 02-02-24 which showed IDC G2, +Node ER+Pr+Her2+. The patient had been able to feel a lump in her left breast for several months. This was her first mammogram. It had slightly increased in size since it was first noticed. She has not had any other surgery on her breast. She was not complaining of any nipple discharge. She does have some tethering of the skin at the site. Her case was presented at tumor board on 03-07-2024. The recommendation was a breast MRI, referral to medical oncology, genetic testing, neoadjuvant therapy; MRI noted lesion in left breast 3.9 cm She was seen by Dr. Henry Goode on 02-14-2024, note from 04-14-24 reviewed 1. appointment with medical oncology, (she is to receive 6 treatments TC and the last will be around [place], usually about 4-6 weeks later will be ready for surgery) 2. genetic testing; was CHEK 2 VUS 3. MRI of the breast; this was done at [facility]; breast lesion measured 3.9 cm in the largest parameter; repeat MRI 07-21-24 no evidence of tumor 4. presentation at tumor board done on 03-07-24 Patient had two COVID vaccines. The patient is seen with her . She is doing well at this time. She has had a good response to the neoadjuvant treatment with a decrease in size of the lesion in the left breast and nonpalpable lymph nodes now in the axilla. note 06-27-24 medical oncology reviewed: will complete cycle 6 of chemo on 07-06-24 and hope to do MRI in July 21 at 4:45 to assess tumor response They met with plastic surgeon and will plan on surgery after completes chemotherapy Caffeine: caffeine all day nicotine: 1/2 PPD since chocolate: occasional BCP: depo shots and implants, she has not used them for about 2010 Family History: sister's daughter: lymphoma in remission mother: bladder cancer Hormonal History: menarche: 12 M2, breast fed: no, age at first : 23 periods irregular, LMP: December 01 Surgical History: left knee hernia D&C Medical History: none Social History: nicotine: 1/2 PPD since alcohol: none drugs: THC gummies daily; smoke marijuana daily Review of Systems - Constitutional Denies fever, Denies weight loss - EENT Eyes: denies blurred vision Ears: deny: decreased hearing, tinnitus Ears, nose, mouth and throat: Denies dysphagia - Breasts bilateral: as per HPI - Cardiovascular Denies chest pain, Denies shortness of breath - Respiratory Denies cough - Gastrointestinal Reports as per HPI - Genitourinary Genitourinary: Denies dysuria, Denies hematuria Menstruation: Reports cycle variable - Musculoskeletal Reports as per HPI - Integumentary Denies rash, Denies unusual bruising - Neurological Neurologic Comment(s): slightly anemic, motion sickness, at those times can pass out Reports syncope, Denies headaches - Psychiatric Reports anxiety - Endocrine Reports as per HPI - Hematologic/Lymphatic Reports as per HPI - Allergic/Immunologic Reports seasonal allergies Past Medical History Past Medical History: No Reported History Additional Past Medical History / Comment(s): anemia History of Any Multi-Drug Resistant Organisms: None Reported Past Surgical History: Section, Hernia Repair Additional Past Surgical History / Comment(s): left knee arthroscopy x 2 Past Anesthesia/Blood Transfusion Reactions: Motion Sickness Past Psychological History: No Psychological Hx Reported Smoking Status: Current every day smoker Past Alcohol Use History: None Reported Additional Past Alcohol Use History / Comment(s): smokes .5 ppd cigarettes daily, has smoked for 20 yrs Past Drug Use History: Marijuana Additional Drug Use History / Comment(s): THC gummy on occassion - Past Family History Mother Family Medical History: No Reported History Medications and Allergies Home Medications Medication Instructions Recorded Confirmed Type No Known Home Medications 01/28/24 02/09/24 History Allergies Allergy/AdvReac Type Severity Reaction Status Date / Time No Known Allergies Allergy Verified 02/09/24 08:48 Objective - Vital Signs Vital Signs: Intake & Output 07/27/24 07/28/24 07/28/24 18:59 06:59 18:59 Weight 65.771 kg - Constitutional General appearance: Present: cooperative - EENT Eyes: Present: EOMI ENT: Present: hearing grossly normal - Neck Neck: Present: normal ROM - Respiratory Respiratory: bilateral: CTA - Cardiovascular Rhythm: regular Heart sounds: normal: S1, S2 - Gastrointestinal General gastrointestinal: Present: soft - Integumentary Integumentary: Present: normal turgor - Musculoskeletal Musculoskeletal: Present: gait normal - Psychiatric Psychiatric: Present: A&O x's 3, appropriate affect, intact judgment & insight - Additional findings Additional findings: Breast exam: BRA: 34B Inspection: mild skin tethering inferior lateral aspect of left breast resolved, bilateral grade 2 ptosis at first examination Palpation: Right breast: Multi positional exam fibrocystic changes no dominant masses or nodules of concern Right axilla: No adenopathy of concern Left breast: Multi positional exam mild fullness upper outer quadrant left breast no discrete dominant masses or nodules of concern Left axilla: Mild adenopathy does not appear worrisome Assessment and Plan Plan: Impression: Left breast invasive ductal carcinoma [id number] ER positive WA positive HER2 positive Nicotine dependence neoadjuvant chemotherapy complete on July 06 MRI results reviewed 07-21-24 Plan: bilateral nipple sparing mastectomies with immediate reconstruction and left sentinel node injection /left sentinel node biopsy/possible axillary node dissection/needle localization of known prior positive lymph node to the axilla with resection of the lymph node The procedure discussed. Risk include but are not limited to bleeding, infection, reaction to the anesthetic. There is a possibility of decreased sensation to the nipple areolar complex or sloughing of the near nipple areolar complex. There is a possibility of decreased sensation to the upper arm/lymphedema/possible injury to the thoracodorsal or long thoracic nerves which could result in winged scapula. They understand and wish to proceed. Additionally we have discussed secondary to the response to the neoadjuvant chemotherapy whether a lumpectomy would be more preferable. At this time she would like to proceed with a bilateral mastectomies. Dr. Patino from plastic surgery is going to be involved with the case. The patient has stopped smoking on 07-06-24, she is using a nicotine patch. represented case at tumor board/ discussed on 07-25-24 CC: Dr. Silva
== END ==
LOC: WWCWWP 11:29
PROVIDERS: ATTEND Surgery
DX: C50.912 Malignant neoplasm of unspecified site of left female breast (principal); F17.210 Nicotine dependence, cigarettes, uncomplicated; Z17.21 Progesterone receptor positive status; Z17.0 Estrogen receptor positive status [ER+]; Z92.21 Personal history of antineoplastic chemotherapy

== ENCOUNTER 2025-02-05 11:06 | Day surgery (SDC) | payer OTHER ==
[2025-01-31 10:20] VITALS: BMI 19.3
[~2025-02-05 11:06] MED LIST changes: -DEXAMETHASONE SOD PHOSPHATE 10 MG/ML 1 ML VIAL IV ONE; -LACTATED RINGERS 1,000 ML IV SCH; -LIDOCAINE 1% 20 ML VIAL (10MG/ML) FOR IV START INTRADERMA PRN; -ONDANSETRON 4 MG/2 ML VIAL IVP ONE
[2025-02-05 11:40] VITALS: TEMP 97.7
[2025-02-05] MEDS: IV FLUID CONTINUATION 1,000 ML IV ONE (12:08)
[2025-02-05] MEDS: LACTATED RINGERS 1,000 ML IV SCH (12:08)
[2025-02-05] MEDS: ONDANSETRON 4 MG/2 ML VIAL IVP ONE (12:09)
[2025-02-05] MEDS: DEXAMETHASONE SOD PHOSPHATE 4 MG/ML 1 ML VIAL IV ONE (12:10)
[2025-02-05] MEDS ORDERED: fentaNYL (PF) 50 MCG/ML 2 ML AMP ONE (12:55)
[2025-02-05] MEDS ORDERED: PROPOFOL 10 MG/ML 20 ML VIAL IV ONE (12:55)
[2025-02-05] MEDS ORDERED: diphenhydrAMINE 50 MG/ML 1 ML VIAL ONE (12:55)
[2025-02-05] MEDS ORDERED: MIDAZOLAM 2 MG/2 ML VIAL ONE (12:55)
[2025-02-05] MEDS ORDERED: KETAMINE HCL IN 0.9 % NACL 50 MG/5 ML SYRINGE ONE (12:55)
[2025-02-05] MEDS: ceFAZolin 1,000 MG VIAL IVPB ONE (12:58)
[2025-02-05] MEDS: BUPIVACAINE (PF) 0.25% 30 ML VIAL SQ ONE (13:13)
--- NOTE | 2025-02-05 13:43 | FL ---
EXAMINATION TYPE: FL guided central line placemt Intraoperative/procedural fluoroscopic services were provided. CLINICAL INDICATION:Female, 39 years old with history of C50.512 BREAST CA; , [facility] FINDINGS: Fluoroscopic images demonstrating right chest subclavian approach Mediport catheter with distal tip i n the region of the high SVC. No radiographic evidence for complication. Total fluoroscopy time is 8.6 seconds. DAP: 0.2420 Gycm2 Please see the operative/procedural note for further details. [facility], , 02/05/2025 1:41 PM
--- NOTE | 2025-02-05 13:52 | P.OP ---
Date of Procedure: 02/05/25 Preoperative Diagnosis: Breast cancer Postoperative Diagnosis: Breast cancer Procedure(s) Performed: Mediport placement under fluoroscopic guidance Anesthesia: MAC Surgeon: Aric Granado Pathology: none sent Condition: stable Disposition: same day Indications for Procedure: 39-year-old female with history of breast cancer status post bilateral mastectomy presents for Mediport placement for chemotherapy induction and continued preventative measures. Risks, benefits and alternatives were provided to the patient. All questions answered prior to attending the operating suite. Operative Findings: Appropriate flush and withdrawal from Mediport site Description of Procedure: Patient was brought to the operating suite and placed in supine position on the operating table. Sedation was provided by anesthesia and the patient underwent endotracheal intubation. Patient was then prepped and draped in regular sterile fashion. Local anesthetic was administered and the right subclavian vein was entered on first attempt. Dark nonpulsatile blood was withdrawn. Guidewire was then placed and location was confirmed under fluoroscopic guidance. At this point local anesthetic was administered to create the pocket for the port. Incision was made and dissection was carried to the prepectoralis fascia. Dissection was carried to free up space for the port. At this point a small incision was made at the guidewire insertion site and a tunnel was created between this guidewire site and the pocket and catheter was placed. Dilator sheath was then placed over the guidewire under fluoroscopic guidance and catheter was then placed. Catheter was noted to be in appropriate position and was connected to the port and port was placed in the pocket. Appropriate flush and withdrawal was noted from the port site. The port was then secured to the prepectoralis fascia in 2 separate locations. Fluoroscopic guidance confirmed location with no kinks in the catheter. Heparin lock was placed. The wound was then closed in layers with 3-0 Vicryl and 4-0 Vicryl subcuticular suture. Sterile dressing was applied. The patient was then taken to postanesthesia care unit in stable condition with pending chest x-ray.
[2025-02-05 14:22] VITALS: RESP 16
--- NOTE | 2025-02-05 14:23 | XR ---
EXAMINATION TYPE: XR chest 1V confirm line plcmt DATE OF EXAM: 02/05/2025 2:14 PM COMPARISON: Fluoroscopic images of the same day. TECHNIQUE: XR chest 1V confirm line plcmt Portable AP radiograph of the chest. CLINICAL INDICATION:Female, 39 years old with history of MEDIPORT INSERTION; FINDINGS: Lungs/Pleura: There is no evidence of pleural effusion or pneumothorax. Right basilar patchy atelecta sis. Pulmonary vascularity: Unremarkable. Heart/mediastinum: Cardiomediastinal silhouette is unremarkable. Musculoskeletal: No acute osseous pathology. 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 Lines/Tubes: Right chest subclavian approach Mediport catheter with distal tip in the mid SVC. IMPRESSION: Right chest subclavian approach Mediport catheter with distal tip in the mid SVC. No pneumothorax. [facility] Ak[facility] Acosta, , 02/05/2025 2:21 PM
[2025-02-05 14:36] VITALS: BP 102/73; PULSE 71
== END 2025-02-05 14:51 | disposition home or self-care (01) ==
LOC: OR 11:06
PROVIDERS: ATTEND Surgery
DX: C50.512 Malignant neoplasm of lower-outer quadrant of left female breast (principal); D64.9 Anemia, unspecified; Z79.810 Long term (current) use of selective estrogen receptor modulators (SERMs); Z79.899 Other long term (current) drug therapy; Z87.891 Personal history of nicotine dependence; Z90.13 Acquired absence of bilateral breasts and nipples
CPT/HCPCS: 36561; 77001; C1788; J2250; J1200; J1100; J2405; J0690; J3010; J1642; J2704; J0665